=== PATIENT | male | born 1980 | race Caucasian/White ===

== ENCOUNTER 2017-05-29 09:23 | Emergency (ER) | payer OTHER ==
[2017-05-29] MEDS ORDERED: Aspirin 81 MG Tab.Chew PO ONE (09:40)
[2017-05-29] MEDS ORDERED: Sodium Chloride 0.9% 10 ML Syringe FLUSH PRN (09:40)
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
--- NOTE | 2017-05-29 13:05 | CR ---
Chest: Portable view of the chest was obtained. Comparison: No prior study. Heart size and mediastinum are normal. Lungs are clear. Bony structures are grossly intact. Impression: 1. Nothing acute is identified on portable chest x-ray. Diagnostic code #1
== END 2017-05-29 11:21 | disposition home or self-care (01) ==
LOC: JD.ED 09:23
DX: R07.89 Other chest pain (principal); Z88.2 Allergy status to sulfonamides
CPT/HCPCS: 36415; 71010; 80053; 84484; 85025; 85379; 93005; 99285; A9270; J7050; 93010

== ENCOUNTER 2021-07-07 14:17 | Emergency (ER) | payer BC ==
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
[2021-07-07] MEDS ORDERED: Ibuprofen 600 MG Tab PO ONE (15:51)
--- NOTE | 2021-07-07 16:24 | CT ---
EXAM: CT HEAD W/O LOCATION: [facility] DATE/TIME: 07/07/2021 3:25 PM INDICATION: Headache, blurred vision COMPARISON: None. TECHNIQUE: Routine CT Head without IV contrast. Multiplanar reformats. Dose reduction techniques were used. FINDINGS: INTRACRANIAL CONTENTS: No intracranial hemorrhage, extraaxial collection, or mass effect. No CT evidence of acute infarct. Normal parenchymal attenuation. Normal ventricles and sulci. VISUALIZED ORBITS/SINUSES/MASTOIDS: No intraorbital abnormality. Mild mucosal thickening scattered about the paranasal sinuses, primarily involving left anterior ethmoid air cells. No middle ear or mastoid effusion. BONES/SOFT TISSUES: No acute abnormality. IMPRESSION: 1. No acute intracranial process. 2. Partially visualized inflammatory changes of the paranasal sinuses. SIGNED BY: Noman Boo MD 07/07/2021 4:55 PM [facility]ITAL[facility]
== END 2021-07-07 17:29 | disposition home or self-care (01) ==
LOC: JD.ED 14:17
DX: R07.89 Other chest pain (principal); R42 Dizziness and giddiness; Z88.2 Allergy status to sulfonamides; Z91.030 Bee allergy status
CPT/HCPCS: 36415; 70450; 80053; 84484; 85025; 93005; 99285; A9270